=== PATIENT | female | born 1990 | race Caucasian/White ===

== ENCOUNTER 2019-04-11 03:59 | Inpatient (IN) | payer MEDICAID, OTHER ==
--- NOTE | 2019-04-11 04:32 | ED ---
Psych HPI <Jorge Alberto Guevara - Last Filed: 04/11/19 09:44> - General Source: patient, police Mode of arrival: ambulatory <July Coppola - Last Filed: 04/11/19 21:57> - General Chief Complaint: Psychiatric Symptoms Stated Complaint: Mental Health Time Seen by Provider: 04/11/19 04:19 - History of Present Illness Initial Comments: Valorie is a 28-year-old female with a history of depression and anxiety was brought to the ER today by police who apparently found her in the street. Patient states that she wanted to kill herself by running into traffic. Upon my evaluation patient is very agitated and states that she just wants to talk to psych. She states that she can't remember everything that's going on so she was on a talk right now. (July Coppola) - Related Data Home Medications Medication Instructions Recorded Confirmed No Known Home Medications 04/11/19 04/11/19 Allergies Allergy/AdvReac Type Severity Reaction Status Date / Time haloperidol [From Haldol] AdvReac dizziness Verified 04/11/19 12:26 Review of Systems ROS Other: All systems not noted in ROS Statement are negative. <Jorge Alberto Guevara - Last Filed: 04/11/19 09:44> ROS Other: All systems not noted in ROS Statement are negative. <July Coppola - Last Filed: 04/11/19 21:57> ROS Statement: Those systems with pertinent positive or pertinent negative responses have been documented in the HPI. Past Medical History Past Medical History: No Reported History History of Any Multi-Drug Resistant Organisms: None Reported Past Surgical History: Section Past Psychological History: Anxiety, Depression, Schizophrenia Smoking Status: Current every day smoker Past Alcohol Use History: None Reported Past Drug Use History: None Reported <July Coppola - Last Filed: 04/11/19 21:57> General Exam Limitations: no limitations <July Coppola - Last Filed: 04/11/19 21:57> - General Exam Comments Initial Comments: Physical Exam GENERAL: Patient is well-developed and well-nourished. Patient is nontoxic and well- hydrated and is in no distress. HENT: Normocephalic, Atraumatic. EYES: PERRL, EOMI PULMONARY: Unlabored respirations CARDIOVASCULAR: RRR ABDOMEN: Nondistended SKIN: Skin is clear with no lesions or rashes and otherwise unremarkable. : Deferred NEUROLOGIC: Patient is alert and oriented x3. Moving all extremities spontaneously MUSCULOSKELETAL: Normal extremities with adequate strength and full range of motion. PSYCHIATRIC: Labile, agitated suicidal (July Coppola) Course Vital Signs 04/11/19 04/11/19 04/11/19 04:05 10:56 11:55 Temperature 97.6 F 98.2 F Pulse Rate 68 60 Respiratory 17 16 17 Rate Blood Pressure 111/73 98/59 O2 Sat by Pulse 97 100 Oximetry Medical Decision Making - Lab Data Result diagrams: 04/11/19 06:04 04/11/19 06:04 <Jorge Alberto Guevara - Last Filed: 04/11/19 09:44> - Lab Data Result diagrams: 04/11/19 06:04 04/11/19 06:04 <July Coppola - Last Filed: 04/11/19 21:57> - Medical Decision Making Patient was seen and evaluated, patient is acutely suicidal, non-cooperative with giving history states that she needs to be in a psych facility was recently in a psych facility not here though she doesn't remember where Medically cleared for evaluation by psychiatry Patient care signed out to Dr. Guevara at shift change, patient is pending evaluation by EPS. (July Coppola) - Lab Data Lab Results 04/11/19 04/11/19 04/11/19 Range/Units 04:37 04:37 06:04 WBC (3.8-10.6) k/uL RBC (3.80-5.40) m/uL Hgb (11.4-16.0) gm/dL Hct (34.0-46.0) % MCV (80.0-100.0) fL MCH (25.0-35.0) pg MCHC (31.0-37.0) g/dL RDW (11.5-15.5) % Plt Count (150-450) k/uL Neutrophils % % Lymphocytes % % Monocytes % % Eosinophils % % Basophils % % Neutrophils # (1.3-7.7) k/uL Lymphocytes # (1.0-4.8) k/uL Monocytes # (0-1.0) k/uL Eosinophils # (0-0.7) k/uL Basophils # (0-0.2) k/uL Sodium 141 (137-145) mmol/L Potassium 3.7 (3.5-5.1) mmol/L Chloride 108 H (98-107) mmol/L Carbon Dioxide 26 (22-30) mmol/L Anion Gap 7 mmol/L BUN 13 (7-17) mg/dL Creatinine 0.70 (0.52-1.04) mg/dL Est GFR (CKD-EPI)AfAm >90 (>60 ml/min/1.73 sqM) Est GFR (CKD-EPI)NonAf >90 (>60 ml/min/1.73 sqM) Glucose 103 H (74-99) mg/dL Calcium 9.9 (8.4-10.2) mg/dL Total Bilirubin 0.1 L (0.2-1.3) mg/dL AST 16 (14-36) U/L ALT 14 (9-52) U/L Alkaline Phosphatase 82 (38-126) U/L Total Protein 6.8 (6.3-8.2) g/dL Albumin 4.1 (3.5-5.0) g/dL Urine Color Light Yellow Urine Appearance Cloudy H (Clear) Urine pH 6.0 (5.0-8.0) Ur Specific [place] 1.017 (1.001-1.035) Urine Protein Negative (Negative) Urine Glucose (UA) Negative (Negative) Urine Ketones Negative (Negative) Urine Blood Negative (Negative) Urine Nitrite Positive H (Negative) Urine Bilirubin Negative (Negative) Urine Urobilinogen <2.0 (<2.0) mg/dL Ur Leukocyte Esterase Large H (Negative) Urine RBC 2 (0-5) /hpf Urine WBC 38 H (0-5) /hpf Ur Squamous Epith Cells 6 H (0-4) /hpf Urine Bacteria Many H (None) /hpf Urine Mucus Few H (None) /hpf Urine HCG, Qual Not Detected (Not Detectd) Salicylates <1.0 mg/dL Urine Opiates Screen Not Detected (NotDetected) Ur Oxycodone Screen Not Detected (NotDetected) Urine Methadone Screen Not Detected (NotDetected) Ur Propoxyphene Screen Not Detected (NotDetected) Acetaminophen <10.0 ug/mL Ur Barbiturates Screen Not Detected (NotDetected) U Tricyclic Antidepress Not Detected (NotDetected) Ur Phencyclidine Scrn Not Detected (NotDetected) Ur Amphetamines Screen Not Detected (NotDetected) U Methamphetamines Scrn Not Detected (NotDetected) U Benzodiazepines Scrn Not Detected (NotDetected) Urine Cocaine Screen Not Detected (NotDetected) U Marijuana (THC) Screen Detected H (NotDetected) Serum Alcohol <10 mg/dL 04/11/19 Range/Units 06:04 WBC 8.1 (3.8-10.6) k/uL RBC 3.81 (3.80-5.40) m/uL Hgb 11.5 (11.4-16.0) gm/dL Hct 35.4 (34.0-46.0) % MCV 92.9 (80.0-100.0) fL MCH 30.1 (25.0-35.0) pg MCHC 32.4 (31.0-37.0) g/dL RDW 14.0 (11.5-15.5) % Plt Count 293 (150-450) k/uL Neutrophils % 63 % Lymphocytes % 30 % Monocytes % 4 % Eosinophils % 2 % Basophils % 1 % Neutrophils # 5.1 (1.3-7.7) k/uL Lymphocytes # 2.4 (1.0-4.8) k/uL Monocytes # 0.3 (0-1.0) k/uL Eosinophils # 0.1 (0-0.7) k/uL Basophils # 0.1 (0-0.2) k/uL Sodium (137-145) mmol/L Potassium (3.5-5.1) mmol/L Chloride (98-107) mmol/L Carbon Dioxide (22-30) mmol/L Anion Gap mmol/L BUN (7-17) mg/dL Creatinine (0.52-1.04) mg/dL Est GFR (CKD-EPI)AfAm (>60 ml/min/1.73 sqM) Est GFR (CKD-EPI)NonAf (>60 ml/min/1.73 sqM) Glucose (74-99) mg/dL Calcium (8.4-10.2) mg/dL Total Bilirubin (0.2-1.3) mg/dL AST (14-36) U/L ALT (9-52) U/L Alkaline Phosphatase (38-126) U/L Total Protein (6.3-8.2) g/dL Albumin (3.5-5.0) g/dL Urine Color Urine Appearance (Clear) Urine pH (5.0-8.0) Ur Specific [place] (1.001-1.035) Urine Protein (Negative) Urine Glucose (UA) (Negative) Urine Ketones (Negative) Urine Blood (Negative) Urine Nitrite (Negative) Urine Bilirubin (Negative) Urine Urobilinogen (<2.0) mg/dL Ur Leukocyte Esterase (Negative) Urine RBC (0-5) /hpf Urine WBC (0-5) /hpf Ur Squamous Epith Cells (0-4) /hpf Urine Bacteria (None) /hpf Urine Mucus (None) /hpf Urine HCG, Qual (Not Detectd) Salicylates mg/dL Urine Opiates Screen (NotDetected) Ur Oxycodone Screen (NotDetected) Urine Methadone Screen (NotDetected) Ur Propoxyphene Screen (NotDetected) Acetaminophen ug/mL Ur Barbiturates Screen (NotDetected) U Tricyclic Antidepress (NotDetected) Ur Phencyclidine Scrn (NotDetected) Ur Amphetamines Screen (NotDetected) U Methamphetamines Scrn (NotDetected) U Benzodiazepines Scrn (NotDetected) Urine Cocaine Screen (NotDetected) U Marijuana (THC) Screen (NotDetected) Serum Alcohol mg/dL Disposition Time of Disposition: 09:44 <Jorge Alberto Guevara - Last Filed: 04/11/19 09:44> <July Coppola - Last Filed: 04/11/19 21:57> Clinical Impression: Depression, Suicidal ideation Disposition: ADMITTED IP TO THIS HOSP
[2019-04-11 04:51] LABS: Appearance,Urine Cloudy (Clear); Bacteria,Urine Many /hpf; Bilirubin,Urine Negative (Negative); Blood,Urine Negative (Negative); Color,Urine Light Yellow; Glucose,Urine (UA) Negative (Negative); Ketones,Urine Negative (Negative); Leukocyte Esterase,Urine Large (Negative); Mucus,Urine Few /hpf; Nitrite,Urine Positive (Negative); Protein,Urine Negative (Negative); RBC,Urine 2 /hpf (0-5); Specific Gravity,Urine 1.017 (1.001-1.035); Squamous Epithelial Cell,Urine 6 /hpf (0-4); Urobilinogen,Urine <2.0 mg/dL (<2.0); WBC,Urine 38 /hpf (0-5)
[2019-04-11 05:03] LABS: Amphetamine Screen,Urine Not Detected (NotDetected); Barbiturate Screen,Urine Not Detected (NotDetected); Benzodiazepines Screen,Urine Not Detected (NotDetected); Cocaine Screen,Urine Not Detected (NotDetected); Methadone Screen, Urine Not Detected (NotDetected); Opiate Screen,Urine Not Detected (NotDetected); Oxycodone Screen, Urine Not Detected (NotDetected); Phencyclidine Screen,Urine Not Detected (NotDetected); Tricyclic Antidepressant,Urine Not Detected (NotDetected); Urn Cannabinoid Scrn Detected (NotDetected)
[2019-04-11] MEDS ORDERED: NITROFURANTOIN MONOHYD/M-CRYST 100 MG CAP PO STA (05:33)
[2019-04-11 06:35] LABS: Basophils # (A) 0.1 k/uL (0-0.2); Basophils % (A) 1 %; Eosinophils # (A) 0.1 k/uL (0-0.7); Eosinophils % (A) 2 %; HCT 35.4 % (34.0-46.0); HGB 11.5 gm/dL (11.4-16.0); Lymphocytes # (A) 2.4 k/uL (1.0-4.8); Lymphocytes % (A) 30 %; MCH 30.1 pg (25.0-35.0); MCHC 32.4 g/dL (31.0-37.0); MCV 92.9 fL (80.0-100.0); Mean Platelet Volume 7.8; Monocytes # (A) 0.3 k/uL (0-1.0); Monocytes % (A) 4 %; Neutrophils # (A) 5.1 k/uL (1.3-7.7); Neutrophils % (A) 63 %; Platelet Count 293 k/uL (150-450); RBC 3.81 m/uL (3.80-5.40); WBC 8.1 k/uL (3.8-10.6)
[2019-04-11 06:49] LABS: ALT 14 U/L (9-52); AST 16 U/L (14-36); Acetaminophen <10.0 ug/mL; African American GFR (CKD) >90 (>60 ml/min/1.73 sqM); Albumin 4.1 g/dL (3.5-5.0); Alcohol <10 mg/dL; Alkaline Phosphatase 82 U/L (38-126); Anion Gap 7 mmol/L; Blood Urea Nitrogen 13 mg/dL (7-17); Calcium 9.9 mg/dL (8.4-10.2); Carbon Dioxide 26 mmol/L (22-30); Chloride 108 mmol/L (98-107); Glucose 103 mg/dL (74-99); Potassium 3.7 mmol/L (3.5-5.1); Salicylate <1.0 mg/dL; Sodium 141 mmol/L (137-145); Total Bilirubin 0.1 mg/dL (0.2-1.3); Total Protein 6.8 g/dL (6.3-8.2)
[2019-04-11] MEDS ORDERED: MAGNESIUM HYDROXIDE 2,400 MG/10 ML CUP PO PRN (12:03)
[2019-04-11] MEDS ORDERED: LORazepam 1 MG TAB PO PRN (12:03)
[2019-04-11] MEDS ORDERED: MAG HYDROX/AL HYDROX/SIMETH 30 ML CUP PO PRN (12:03)
[2019-04-11] MEDS ORDERED: ZIPRASIDONE 20 MG VIAL IM PRN (12:03)
[2019-04-11] MEDS: NICOTINE 14MG/24HR PATCH TRANSDERM SCH (13:01)
[2019-04-11] MEDS: ACETAMINOPHEN TAB 325 MG TAB PO PRN (16:35)
[2019-04-11] MEDS ORDERED: ONDANSETRON 4 MG TAB PO PRN (17:23)
[2019-04-11] MEDS ORDERED: IBUPROFEN 600 MG TAB PO PRN (17:23)
[2019-04-11] MEDS ORDERED: BISACODYL 5 MG TABLET.DR PO PRN (17:25)
--- NOTE | 2019-04-11 17:26 | P.HPMEDMHU ---
History of Present Illness H&P Date: 04/11/19 Chief Complaint: depression with suicidal ideation Patient is a 28-year-old female with a past medical history of umbilical hernia, schizophrenia, and postherpetic stress disorder who presented to the emergency department via police after expressing suicidal ideation. Apparently the patient was hospitalized at [facility] approximately one month ago on the mental health unit. She is homeless and has not been taking any medications. She was subsequently admitted to the mental health unit. Patient seen and examined at bedside. She reports that she has an umbilical hernia that has been present for approximately 3 years. She's been told that she is not a surgical candidate as there is no organ involvement. She typically takes ibuprofen to help with the pain. She also states she's been having intermittent episodes of constipation but that is getting better. She denies any chest pain, shortness breath, nausea, vomiting, or diarrhea. She denies any headaches. No other complaints currently. Review of Systems Pertinent positives and negatives as discussed in HPI, a complete review of systems was performed and all other systems are negative. Past Medical History Additional Past Medical History / Comment(s): Umbilical hernia History of Any Multi-Drug Resistant Organisms: None Reported Past Surgical History: Section Past Psychological History: Anxiety, Depression, PTSD, Schizophrenia Smoking Status: Current every day smoker Past Alcohol Use History: None Reported Past Drug Use History: Marijuana Additional History: Homeless - Past Family History Father Family Medical History: Unable to Obtain Additional Family Medical History / Comment(s): Patient adopted Medications and Allergies Home Medications Medication Instructions Recorded Confirmed Type No Known Home Medications 04/11/19 04/11/19 History Allergies Allergy/AdvReac Type Severity Reaction Status Date / Time haloperidol [From Haldol] AdvReac dizziness Verified 04/11/19 12:26 Physical Exam Osteopathic Statement: *. No significant issues noted on an osteopathic structural exam other than those noted in the History and Physical/Consult. Vitals: Vital Signs Temp Pulse Pulse Resp BP BP Pulse Ox 04/11/19 12:30 97.0 F L 63 16 103/62 98 04/11/19 11:55 17 04/11/19 10:56 98.2 F 60 16 98/59 100 04/11/19 04:05 97.6 F 68 17 111/73 97 Intake and Output 04/11/19 04/11/19 04/11/19 06:59 14:59 22:59 Other: Weight 63.503 kg 62 kg General: non toxic, no distress, appears at stated age, normal weight Derm: no unusual rashes/lesions no unusual ecchymoses, warm, dry Head: atraumatic, normocephalic, symmetric Eyes: EOMI, no lid lag, anicteric sclera, pupils equal round reactive to light ENT: Nose and ears atraumatic, no thrush, no pharyngeal erythema Neck: No thyromegaly, no cervical lymphadenopathy, trachea midline, supple Mouth: no lip lesion, mucus membranes moist Cardiovascular: S1S2 reg, no murmur, positive posterior tibial pulse bilateral, no edema, capillary refill less than 2 seconds Lungs: CTA bilateral, no rhonchi, no rales , no accessory muscle use Abdominal: soft, nontender to palpation, no guarding, no appreciable organomegaly, normal bowel sounds, + quarter sized reduciable umbilical hernia Ext: no gross muscle atrophy, muscle strength 5 out of 5 in all 4 extremities grossly, no contractures, Neuro: CN II-XI grossly intact, light touch intact all 4 extremities, finger to nose within normal limits, Psych: Alert, oriented, appropriate affect Cranial Nerve Examination - Cranial Nerves Cranial Nerve II- Optic: Intact Cranial Nerve III- Oculomotor: Intact Cranial Nerve IV- Trochlear: Intact Cranial Nerve V- Trigeminal: Intact Cranial Nerve - Abducens: Intact Cranial Nerve VII- Facial: Intact Cranial Nerve VIII- Auditory: Intact Cranial Nerve IX- Glossopharyngeal: Intact Cranial Nerve X- Vagus: Intact Cranial Nerve XI- Accessory: Intact Cranial Nerve XII- Hypoglossal: Intact Results CBC & Chem 7: 04/11/19 06:04 04/11/19 06:04 Labs: Abnormal Lab Results - Last 24 Hours (Table) 04/11/19 04/11/19 Range/Units 04:37 06:04 Chloride 108 H (98-107) mmol/L Glucose 103 H (74-99) mg/dL Total Bilirubin 0.1 L (0.2-1.3) mg/dL Urine Appearance Cloudy H (Clear) Urine Nitrite Positive H (Negative) Ur Leukocyte Esterase Large H (Negative) Urine WBC 38 H (0-5) /hpf Ur Squamous Epith Cells 6 H (0-4) /hpf Urine Bacteria Many H (None) /hpf Urine Mucus Few H (None) /hpf U Marijuana (THC) Screen Detected H (NotDetected) Thrombosis Risk Factor Assmnt - Choose All That Apply Any of the Below Risk Factors Present?: No Assessment and Plan Assessment: Umbilical hernia - patient is unsure about where she will be after discharge Could benefit from outpatient eval from surgery if stays in the area. - motrin prn Tobacco abuse - cessation - nicotine replacement Constipation - prn dulcolax Suicidal ideation - your psych management Thank you for allowing us to participate in the care of this patient. We will follow peripherally. Do not hesitate to contact us with questions. Someone can be reached from the [facility] hospitalist group at all hours of the day at [phone].
[2019-04-12] MEDS: NICOTINE 14MG/24HR PATCH TRANSDERM SCH (09:13)
[2019-04-12] MEDS: ACETAMINOPHEN TAB 325 MG TAB PO PRN (09:14)
[2019-04-12 10:27] LABS: Basophils # (A) 0.1 k/uL (0-0.2); Basophils % (A) 1 %; Eosinophils # (A) 0.1 k/uL (0-0.7); Eosinophils % (A) 2 %; HCT 38.4 % (34.0-46.0); HGB 11.8 gm/dL (11.4-16.0); Lymphocytes # (A) 2.4 k/uL (1.0-4.8); Lymphocytes % (A) 38 %; MCH 29.5 pg (25.0-35.0); MCHC 30.8 g/dL (31.0-37.0); MCV 95.7 fL (80.0-100.0); Mean Platelet Volume 7.9; Monocytes # (A) 0.3 k/uL (0-1.0); Monocytes % (A) 5 %; Neutrophils # (A) 3.3 k/uL (1.3-7.7); Neutrophils % (A) 53 %; Platelet Count 307 k/uL (150-450); RBC 4.02 m/uL (3.80-5.40); WBC 6.2 k/uL (3.8-10.6)
[2019-04-12 10:46] LABS: ALT 19 U/L (9-52); AST 16 U/L (14-36); African American GFR (CKD) >90 (>60 ml/min/1.73 sqM); Albumin 4.5 g/dL (3.5-5.0); Alkaline Phosphatase 75 U/L (38-126); Anion Gap 10 mmol/L; Blood Urea Nitrogen 13 mg/dL (7-17); Carbon Dioxide 28 mmol/L (22-30); Chloride 107 mmol/L (98-107); Glucose 51 mg/dL (74-99); Potassium 4.4 mmol/L (3.5-5.1); Sodium 145 mmol/L (137-145); Total Bilirubin 0.3 mg/dL (0.2-1.3); Total Protein 7.5 g/dL (6.3-8.2)
[2019-04-12] MEDS ORDERED: hydrOXYzine PAMOATE 25 MG CAP PO PRN (12:12)
[2019-04-12] MEDS ORDERED: traZODone HCL 50 MG TAB PO PRN (12:12)
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
[2019-04-12] MEDS: ESCITALOPRAM 10 MG TAB PO SCH (13:03)
[2019-04-12] MEDS: risperiDONE 0.5 MG TAB PO SCH ×2 (13:03→21:28)
[2019-04-13] MEDS: risperiDONE 0.5 MG TAB PO SCH ×2 (09:17→20:07)
[2019-04-13] MEDS: ESCITALOPRAM 10 MG TAB PO SCH (09:17)
[2019-04-13] MEDS: NICOTINE 14MG/24HR PATCH TRANSDERM SCH (09:35)
[2019-04-13] MEDS: ACETAMINOPHEN TAB 325 MG TAB PO PRN (09:36)
--- NOTE | 2019-04-13 13:42 | P.PN ---
Progress Note - Text Progress Note Date: 04/13/19 Chief complaint: "I have very bad stomach pain " Subjective: The patient has been seen today as follow-up, chart reviewed, case discussed with the treatment team. Patient slept about 6 hours last night, and reports interrupted sleep. Patient has not been going to groups and other unit activi ties. Patient reports poor appetite. Patient reports very severe abdominal pain started early this morning at her umbilical hernia. She described as his tapping pain and is about 10 out of 10 in severity. She reports has no appetite to eat and she is feeling nauseated for most of the time. The patient is compliant with her psychiatric medications and denies any adverse reactions. Patient reports some improvement of her mood after started risperidone was less irritable mood but she still has bouts of agitation. She denies any manic or psychotic symptoms today. She denies any nightmares or flashbacks. Mental status examination; Appearance: The patient appears stated age, better groomed, average body built, no specific features. Gait/posture: Steady gait, Normal arm swinging: No abnormal movements. Attitude and behavior: engaged, cooperative, fair eye contact. Motor activity: Increased psychomotor station Speech: Spontaneous, normal rate, racing. None pressured Mood: Irritable Affect: Constricted Thought form: goal-directed, linear, coherent. Thought content: Non-delusional, denies suicidal thoughts, denies homicidal thoughts, denies intentions or plans. Perception: Denies any auditory or visual hallucinations Attention: No impairment. Patient was able to repeat serial 5. Orientation: Patient patient was oriented to time place person and situation. Insight: Patient has better insight about her psychiatric disorder. Judgment: Patient has limited judgment about her psychiatric treatment. Assessment: Major depressive disorder, recurrent, severe with psychotic features. Generalized anxiety disorder. Post traumatic stress disorder. Cannabis use disorder, severe. Cocaine use disorder, severe in partial remission. Rule out borderline personality disorder. Umbilical hernia. Plan: Continue inpatient level of care due to mood instability, psychotic symptoms, further stabilization on medications Continue treatment of depression, anxiety, and psychotic symptoms provide psychiatric education regarding patient's diagnosis Precautions: Continue 15 minutes check for safety. Consider medical consultation if any acute medical issues arise. Consult surgery team for severe acute abdominal pain-consultation team communicated Provide the patient individual, group therapy, substance use disorder counseling to give better insight and learn coping skills. Continue follow-up with the patient daily to monitor progress of depression, anxiety, and psychotic symptoms. Medications: Continue risperidone 0.5 mg twice daily for mood stabilization and psychotic symptoms. Continue Lexapro 10 mg daily for depression and anxiety symptoms. Continue trazodone 50 mg at bedtime as needed for insomnia. Continue Vistaril 25 mg 4 times a day daily as needed for anxiety. Discharge patient to OUTPATIENT services upon a stabilization Prognosis: Minimal improvement Expected LOS: 3-5 days
--- NOTE | 2019-04-13 15:18 | P.GSCN ---
History of Present Illness Consult date: 04/13/19 Reason for Consult: umbilical hernia Requesting physician: Leila Garcia History of present illness: CHIEF COMPLAINT: Umbilical hernia HISTORY OF PRESENT ILLNESS: 28-year-old female who was admitted to the mental health unit. General surgery was consulted to evaluate patient's umbilical hernia. Patient examined today with Dr. Torres. Patient reports having an umbilical hernia for the last 3-4 months. She reports it is tender and painful today. She is interested in surgical repair. PAST MEDICAL HISTORY: See list. PAST SURGICAL HISTORY: See list. SOCIAL HISTORY: History of alcohol and cocaine abuse REVIEW OF SYSTEMS: CONSTITUTIONAL: Denies fever or chills. HEENT: Denies blurred vision, vision changes, or eye pain. Denies hemoptysis CARDIOVASCULAR: Denies chest pain or pressure. RESPIRATORY: No shortness of breath. GASTROINTESTINAL: Refer to HPI for pertinent findings HEMATOLOGIC: Denies bleeding disorders. GENITOURINARY: Denies any blood in urine. SKIN: Denies pruitis. Denies rash. PHYSICAL EXAM: VITAL SIGNS: Reviewed. GENERAL: Well-developed in no acute distress. HEENT: No sclera icterus. Extraocular movements grossly intact. Moist buccal mucosa. Head is atraumatic, normocephalic. ABDOMEN: Soft. Nondistended. Umbilical hernia noted. NEUROLOGIC: Alert and oriented. Cranial nerves II through XII grossly intact. LABORATORY DATA: WBC 6.2. Hemoglobin 11.8. Platelet count 307. ASSESSMENT: 1. Umbilical hernia PLAN: Patient is unsure of her plan at the time of discharge or where she will be going. She is currently homeless. Patient instructed to follow up with Dr. Torres outpatient next , April 22. A plan will be decided at that on how to proceed with hernia repair pending patients living situation. Pain control per primary medicine. Nurse practitioner note has been reviewed by physician. Signing provider agrees with the documented findings, assessment, and plan of care. Past Medical History Past Medical History: No Reported History Additional Past Medical History / Comment(s): Umbilical hernia History of Any Multi-Drug Resistant Organisms: None Reported Past Surgical History: Section Past Psychological History: Anxiety, Depression, Schizophrenia Smoking Status: Current every day smoker Past Alcohol Use History: None Reported Past Drug Use History: None Reported - Past Family History Father Family Medical History: Unable to Obtain Additional Family Medical History / Comment(s): Patient adopted Medications and Allergies Home Medications Medication Instructions Recorded Confirmed Type No Known Home Medications 04/11/19 04/11/19 History Allergies Allergy/AdvReac Type Severity Reaction Status Date / Time haloperidol [From Haldol] AdvReac dizziness Verified 04/11/19 12:26 Surgical - Exam Vital Signs Temp Pulse Resp BP Pulse Ox 97.6 F 68 17 111/73 97 04/11/19 04:05 04/11/19 04:05 04/11/19 04:05 04/11/19 04:05 04/11/19 04:05 Results - Labs 04/12/19 09:55 04/12/19 09:55
[2019-04-14] MEDS: risperiDONE 0.5 MG TAB PO SCH ×2 (08:39→20:52)
[2019-04-14] MEDS: NICOTINE 14MG/24HR PATCH TRANSDERM SCH (08:39)
[2019-04-14] MEDS: ESCITALOPRAM 10 MG TAB PO SCH (08:40)
[2019-04-14] MEDS: ACETAMINOPHEN TAB 325 MG TAB PO PRN (10:23)
--- NOTE | 2019-04-14 11:55 | P.PN ---
Progress Note - Text Progress Note Date: 04/14/19 Chief complaint: "My mood is much better today " Subjective: The patient has been seen today as follow-up, chart reviewed, case discussed with the treatment team. Patient slept about 8 hours last night with no interruptions. Patient attends groups and other unit activities. Patient reports better appetite and he denies any nausea today. Patient denies any abdominal pain today. She was seen by surgical team yesterday because of umbilical hernia who recommended hernia repair after discharge. The patient is compliant with her psychiatric medications and denies any adverse reactions. Patient reports feeling emotionally stable and admitted for medications is helping her mood stability. She denies feeling depressed, hopeless, or suicidal. Patient denies any severe manic or psychotic symptoms. She denies any auditory or visual hallucinations and no delusions could be elicited. She denies any nightmares or flashbacks. Patient reports planning to stay with her ex after discharge at [place] and she is planning to follow-up with [facility] and there. Mental status examination; Appearance: The patient appears stated age, better groomed, average body built, no specific features. Gait/posture: Steady gait, Normal arm swinging: No abnormal movements. Attitude and behavior: engaged, cooperative, fair eye contact. Motor activity: Normal psychomotor activity Speech: Spontaneous, normal rate, racing. None pressured Mood:" Fine" Affect: Constricted Thought form: goal-directed, linear, coherent. Thought content: Non-delusional, denies suicidal thoughts, denies homicidal thoughts, denies intentions or plans. Perception: Denies any auditory or visual hallucinations Attention: No impairment. Patient was able to repeat serial 5. Orientation: patient was oriented to time place person and situation. Insight: Patient has fair insight about her psychiatric disorder. Judgment: Patient has fair judgment about her psychiatric treatment. Assessment: Major depressive disorder, recurrent, severe with psychotic features. Generalized anxiety disorder. Post traumatic stress disorder. Cannabis use disorder, severe. Cocaine use disorder, severe in partial remission. Rule out borderline personality disorder. Umbilical hernia. Plan: Continue inpatient level of care due to mood instability, psychotic symptoms, further stabilization on medications Continue treatment of depression, anxiety, and psychotic symptoms provide psychiatric education regarding patient's diagnosis Precautions: Continue 15 minutes check for safety. Surgery team consulted yesterday for severe acute abdominal pain- pain was related to umbilical hernia which doesn't need any emergency repair. Surgery team recommended follow-up with an outpatient surgery appointment to schedule repair. Provide the patient individual, group therapy, substance use disorder counseling to give better insight and learn coping skills. Continue follow-up with the patient daily to monitor progress of depression, anxiety, and psychotic symptoms. Medications: Continue risperidone 0.5 mg twice daily for mood stabilization and psychotic symptoms. Continue Lexapro 10 mg daily for depression and anxiety symptoms. Continue trazodone 50 mg at bedtime as needed for insomnia. Continue Vistaril 25 mg 4 times a day daily as needed for anxiety. Discharge patient to OUTPATIENT services upon a stabilization Prognosis: Improving Expected LOS: 2 -3 days
[2019-04-15] MEDS: ESCITALOPRAM 10 MG TAB PO SCH (08:04)
[2019-04-15] MEDS: NICOTINE 14MG/24HR PATCH TRANSDERM SCH (08:04)
[2019-04-15] MEDS: risperiDONE 0.5 MG TAB PO SCH ×2 (08:05→20:58)
[2019-04-15] MEDS: ACETAMINOPHEN TAB 325 MG TAB PO PRN (08:42)
--- NOTE | 2019-04-15 12:42 | P.PN ---
Progress Note - Text Progress Note Date: 04/15/19 Chief complaint: "I feel very good today " Subjective: The patient has been seen today as follow-up, chart reviewed, case discussed with the treatment team. Patient slept about 6 hours last night with no interruptions. Patient attends groups and other unit activities. Patient reports decreased appetite today due to pain related to her umbilical hernia. She minimizes the pain and he denies any severe distress. Patient reports continued to feel emotionally stable and denies feeling depressed, hopeless, or suicidal. She denies any manic or psychotic symptoms. She denies any auditory or visual hallucinations and no delusions could be elicited. She denies any nightmares or flashbacks. Discussed discharge plan with the patient and she agreed for discharge tomorrow to stay with her ex-. Mental status examination; Appearance: The patient appears stated age, fairly groomed, average body built, no specific features. Gait/posture: Steady gait, Normal arm swinging: No abnormal movements. Attitude and behavior: engaged, cooperative, fair eye contact. Motor activity: Normal psychomotor activity Speech: Spontaneous, normal rate, racing. None pressured Mood:" Good" Affect: Constricted Thought form: goal-directed, linear, coherent. Thought content: Non-delusional, denies suicidal thoughts, denies homicidal thoughts, denies intentions or plans. Perception: Denies any auditory or visual hallucinations Attention: No impairment. Patient was able to repeat serial 5. Orientation: patient was oriented to time place person and situation. Insight: Patient has fair insight about her psychiatric disorder. Judgment: Patient has fair judgment about her psychiatric treatment. Assessment: Major depressive disorder, recurrent, severe with psychotic features. Generalized anxiety disorder. Post traumatic stress disorder. Cannabis use disorder, severe. Cocaine use disorder, severe in partial remission. Rule out borderline personality disorder. Umbilical hernia. Plan: Continue inpatient level of care due to mood instability, psychotic symptoms, further stabilization on medications Continue treatment of depression, anxiety, and psychotic symptoms provide psychiatric education regarding patient's diagnosis Precautions: Continue 15 minutes check for safety. Surgery team consulted for severe acute abdominal pain- pain was related to umbilical hernia which doesn't need any emergency repair. Surgery team recommended follow-up with an outpatient surgery appointment to schedule repair. Provide the patient individual, group therapy, substance use disorder counseling to give better insight and learn coping skills. Continue follow-up with the patient daily to monitor progress of depression, anxiety, and psychotic symptoms. Medications: Continue risperidone 0.5 mg twice daily for mood stabilization and psychotic symptoms. Continue Lexapro 10 mg daily for depression and anxiety symptoms. Continue trazodone 50 mg at bedtime as needed for insomnia. Continue Vistaril 25 mg 4 times a day daily as needed for anxiety. Discharge patient to OUTPATIENT services upon a stabilization Prognosis: Improving Expected LOS: 1-2 days
[2019-04-16 06:57] VITALS: BP 113/57; PULSE 55; RESP 14; TEMP 98.7
[2019-04-16] MEDS: ESCITALOPRAM 10 MG TAB PO SCH (08:27)
[2019-04-16] MEDS: risperiDONE 0.5 MG TAB PO SCH (08:27)
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
== END 2019-04-16 11:23 | disposition home or self-care (01) | DRG 885 ==
LOC: EC 03:59 → 3MHU 10:01
PROVIDERS: ADMIT Psychiatry & Neurology Psychiatry; ATTEND Psychiatry & Neurology Psychiatry
DX: F33.3 Major depressive disorder, recurrent, severe with psychotic symptoms (principal); R45.851 Suicidal ideations; F41.1 Generalized anxiety disorder; F43.10 Post-traumatic stress disorder, unspecified; F12.20 Cannabis dependence, uncomplicated; F14.21 Cocaine dependence, in remission; G47.00 Insomnia, unspecified; K42.9 Umbilical hernia without obstruction or gangrene; F41.0 Panic disorder [episodic paroxysmal anxiety]; G89.29 Other chronic pain; Z91.5 Personal history of self-harm; Z91.19 Patient's noncompliance with other medical treatment and regimen; F17.210 Nicotine dependence, cigarettes, uncomplicated; Z71.6 Tobacco abuse counseling; Z59.0 Homelessness; Z62.810 Personal history of physical and sexual abuse in childhood; Z98.891 History of uterine scar from previous surgery; Z88.8 Allergy status to other drugs, medicaments and biological substances
CPT/HCPCS: 36415; 80053; 80306; 80320; 80329; 81001; 81025; 82075; 83520; 84443; 85025; 99285